=== PATIENT | male | born 1965 | race African-American/Black ===

== ENCOUNTER 2018-08-02 08:53 | Emergency (ER) | payer BC, OTHER ==
[2018-08-02 09:05] VITALS: BMI 42.5
[2018-08-02] MEDS ORDERED: SODIUM CHLORIDE 1,000 ML IV STA (09:27)
[2018-08-02] MEDS ORDERED: ONDANSETRON 4 MG/2 ML VIAL IVPUSH ONE ×2 (09:27→11:37)
[2018-08-02] MEDS ORDERED: PANTOPRAZOLE SODIUM 40 MG in SODIUM CHLORIDE 100 ML IVPB ONE (09:27)
[2018-08-02] MEDS ORDERED: PANTOPRAZOLE SODIUM 40 MG/100 ML BAG IVPB ONE (09:32)
[2018-08-02] MEDS ORDERED: ONDANSETRON 4 MG/2 ML VIAL ONE ×2 (09:32→11:39)
--- NOTE | 2018-08-02 09:44 | PDOC ---
History of Present Illness - General Chief Complaint: Nausea/Vomiting Stated Complaint: VOMITING Time Seen by Provider: 08/02/18 09:25 History Source: Patient Exam Limitations: No Limitations - History of Present Illness Travel History: No Initial Comments: 08/02/18 09:34 52-year-old male with history of hypertension presents to ED with complaints of mid upper abdominal pain since yesterday associated with nausea and vomiting. Patient denies fever, chills with difficulty breathing, chest pain abdominal distention, change in bowel pattern, or change in gas pattern. Patient states no recent travel recent illness. 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 Patient was also placed on Linzess for IBS 1 month ago. Timing/Duration: reports: intermittent Quality: reports: mild, burning, cramping, sharpness Abdominal Pain Onset Location: reports: epigastric Pain Radiation: reports: no radiation Activities at Onset: reports: none Aggravating Factors: improves with: None Alleviating Factors: improves with: None Past History - Travel Traveled outside of the country in the last 30 days: No Close contact w/someone who was outside of country & ill: No - Past Medical History Allergies/Adverse Reactions: Allergies Allergy/AdvReac Type Severity Reaction Status Date / Time ibuprofen Allergy Swelling Verified 08/02/18 09:04 Home Medications: Ambulatory Orders Ciprofloxacin HCl [Cipro] 500 mg PO BID #14 tablet 08/02/18 Lisinopril 20 mg PO DAILY 08/02/18 Ondansetron HCl [Zofran] 4 mg PO TID PRN #12 tablet 08/02/18 COPD: No HTN: Yes - Immunization History Immunization Up to Date: Yes - Suicide/Smoking/Psychosocial Hx Smoking Status: No Smoking History: Never smoked Have you smoked in the past 12 months: Yes Number of Cigarettes Smoked Daily: 0 Hx Alcohol Use: Yes (SOCIAL) Drug/Substance Use Hx: No Substance Use Type: None Patient Lives Alone: No Lives with/in: spouse/SO Abd/GI Specific PMHX - Complaint Specific PMHX Irritable Bowel Synd (IBS): Yes (recent diagnosis) Review of Systems - Review of Systems Able to Perform ROS?: Yes Constitutional: No: Symptoms Reported HEENTM: No: Symptoms Reported Respiratory: No: Symptoms reported Cardiac (ROS): No: Symptoms Reported ABD/GI: Yes: Nausea, Vomiting, Abdominal cramping. No: Abdominal Distended, Constipated, Diarrhea, Poor Appetite, Poor Fluid Intake : No: Symptoms Reported Musculoskeletal: No: Symptoms Reported Integumentary: No: Symptoms Reported Neurological: No: Symptoms reported *Physical Exam - Vital Signs Last Vital Signs Temp Pulse Resp BP Pulse Ox 98.3 F 87 18 153/89 98 08/02/18 09:03 08/02/18 09:03 08/02/18 09:03 08/02/18 09:03 08/02/18 09:03 - Physical Exam General Appearance: Yes: Nourished, Appropriately Dressed. No: Apparent Distress HEENT: positive: EOMI, YONATAN. negative: Pale Conjunctivae Neck: positive: Supple Respiratory/Chest: positive: Lungs Clear, Normal Breath Sounds. negative: Respiratory Distress, Accessory Muscle Use Cardiovascular: positive: Regular Rhythm, Regular Rate. negative: Murmur Gastrointestinal/Abdominal: positive: Soft, Tenderness (epigastric ) Musculoskeletal: negative: CVA Tenderness Extremity: positive: Normal Capillary Refill. negative: Pedal Edema Integumentary: positive: Normal Color, Warm, Moist Neurologic: positive: Motor Strength 5/5 (ambulatory) ED Treatment Course - LABORATORY CBC & Chemistry Diagram: 08/02/18 09:45 08/02/18 09:45 Medical Decision Making - Medical Decision Making 08/02/18 09:56 CC: Epigastric pain w/ vomiting since yesterday. no other complaints. Patient with recent diagnosis of IBS and had an abdominal ultrasound now pending an endoscopy in the next coming weeks exam: Vital signs stable. Patient epigastric tenderness with no distention or right upper quadrant tenderness plan: labs, urine,IV fluids, antiemetics and protonix 08/02/18 11:31 Laboratory Tests 08/02/18 08/02/18 08/02/18 09:45 09:45 10:50 WBC 7.7 Hgb 14.8 Hct 44.5 D Neutrophils % 73.5 Sodium 138 Potassium 3.3 L Chloride 102 Carbon Dioxide 28 Anion Gap 9 BUN 12 Creatinine 1.2 Random Glucose 108 H Calcium 9.2 Magnesium 2.2 Total Bilirubin 0.5 AST 17 ALT 35 Alkaline Phosphatase 86 Lipase 85 Urine Nitrite Negative Ur Leukocyte Esterase 1+ H Urine WBC (Auto) 14 Pt given k- dur. U cx added. will discharge home with cipro 08/02/18 11:39 Pt states slightly nauseated and has mild frontal throbbing pressure. Zofran and tylenol ordered 08/02/18 13:01 Pt states feeling better and tolerated a lunch tray *DC/Admit/Observation/Transfer Diagnosis at time of Disposition: Nausea and vomiting - Discharge Dispostion Disposition: HOME Condition at time of disposition: Improved - Prescriptions Prescriptions: Ciprofloxacin HCl [Cipro] 500 mg PO BID #14 tablet Ondansetron HCl [Zofran] 4 mg PO TID PRN #12 tablet PRN Reason: Nausea And/Or Vomiting - Referrals Referrals: Paulina Guido MD [Primary Care Provider] - - Patient Instructions Printed Discharge Instructions: DI for Vomiting -- Adult Additional Instructions: Follow a bland diet x 48 hrs. Take antibiotic as prescribed . Drink plenty of fluids and take Zofran as needed for nausea - Post Discharge Activity
[2018-08-02 10:01] LABS: BASO % 0.5 % (0-2.0); EOS % 0.1 % (0-4.5); HEMATOCRIT 44.5 % (35.4-49); HEMOGLOBIN 14.8 GM/dL (11.7-16.9); LYMPH % 17.4 % (8-40); MCH 30.5 pg (25.7-33.7); MCHC 33.2 g/dl (32.0-35.9); MEAN PLT VOLUME 7.9 fl (7.5-11.1); MONO % 8.5 % (3.8-10.2); NEUT % 73.5 % (42.8-82.8); PLATELET COUNT 239 K/MM3 (134-434); RBC 4.84 M/mm3 (4.00-5.60); RDW 15.2 % (11.9-15.9); WHITE BLOOD COUNT 7.7 K/mm3 (4.0-10.0)
[2018-08-02 10:32] LABS: ALBUMIN 3.6 g/dl (3.4-5.0); ALK PHOS 86 U/L (45-117); ANION GAP 9 MMOL/L (8-16); BILIRUBIN,TOTAL 0.5 mg/dL (0.2-1); BLOOD UREA NITROGEN 12 mg/dL (7-18); CALCIUM 9.2 mg/dL (8.5-10.1); CHLORIDE 102 mmol/L (98-107); CO2 28 mmol/L (21-32); CREATININE 1.2 mg/dL (0.55-1.3); GLUCOSE,RANDOM 108 mg/dL (74-106); LIPASE 85 U/L (73-393); MAGNESIUM 2.2 mg/dL (1.8-2.4); POTASSIUM 3.3 mmol/L (3.5-5.1); SGOT/AST 17 U/L (15-37); SGPT/ALT 35 U/L (13-61); SODIUM 138 mmol/L (136-145); TOT PROT 7.5 g/dl (6.4-8.2)
[2018-08-02] MEDS ORDERED: POTASSIUM CHLORIDE TABS 20 MEQ TABLET.ER (FP) PO ONE ×2 (10:54→10:59)
[2018-08-02 10:59] LABS: EPI CELLS 2.4 /HPF (0-5/HPF); PH,URINE 7.5 (5.0-8.0); URINE APPEARANCE CLEAR; URINE BACTERIA 7.1 /hpf (NEGATIVE); URINE BILIRUBIN NEGATIVE (NEGATIVE); URINE CASTS 7 /lpf (0-8); URINE COLOR YELLOW; URINE GLUCOSE (UA) NEGATIVE (NEGATIVE); URINE KETONE NEGATIVE (NEGATIVE); URINE LEUK ESTERASE 1+ (NEGATIVE); URINE NITRITE NEGATIVE (NEGATIVE); URINE PROTEIN NEGATIVE (NEGATIVE); URINE RBC 2 /hpf (0-4); URINE WBC 14 /hpf (0-5)
[2018-08-02 11:22] VITALS: BP 156/95; PULSE 80; TEMP 98.2
[2018-08-02] MEDS ORDERED: ACETAMINOPHEN 500 MG TABLET (FP) PO ONE (11:38)
[2018-08-02] MEDS ORDERED: ACETAMINOPHEN 500 MG TABLET (FP) ONE (11:39)
== END 2018-08-02 13:09 | disposition home or self-care (01) ==
LOC: JER 08:53
PROC: 3E033GC Introduction of Other Therapeutic Substance into Peripheral Vein, Percutaneous Approach (ICD-10-PCS; principal; 2018-08-02)
PROC: 3E033GC Introduction of Other Therapeutic Substance into Peripheral Vein, Percutaneous Approach (ICD-10-PCS; 2018-08-02)
PROC: 3E033GC Introduction of Other Therapeutic Substance into Peripheral Vein, Percutaneous Approach (ICD-10-PCS; 2018-08-02)
DX: R11.2 Nausea with vomiting, unspecified (principal); E87.6 Hypokalemia; Z87.19 Personal history of other diseases of the digestive system
CPT/HCPCS: 36415; 80053; 81003; 83690; 83735; 85025; 87086; 99282-25; J7030

== ENCOUNTER 2023-02-20 10:46 | Emergency (ER) | payer OTHER ==
[2023-02-20 10:49] VITALS: BMI 40.6
[2023-02-20] MEDS ORDERED: HEPARIN NA (PORCINE) 5,000 UNITS/ML 1ML VIAL IVPUSH ONE (11:15)
[2023-02-20] MEDS ORDERED: TICAGRELOR 90 MG TABLET PO SCH (11:15)
[2023-02-20] MEDS ORDERED: HEPARIN NA (PORCINE) 5,000 UNITS/ML 1ML VIAL ONE (11:20)
[2023-02-20] MEDS ORDERED: CILOSTAZOL 100 MG TABLET PO ONE (11:21)
[2023-02-20] MEDS ORDERED: NITROGLYCERIN SUBLINGUAL 1/200 0.3 MG BTL SL ONE (11:21)
[2023-02-20] MEDS ORDERED: TICAGRELOR 90 MG TABLET PO STA (11:21)
[2023-02-20] MEDS ORDERED: NITROGLYCERIN SUBLINGUAL 1/150 0.4 MG TAB ONE (11:26)
[2023-02-20] MEDS ORDERED: NITROGLYCERIN SUBLINGUAL 1/150 0.4 MG TAB SL ONE (11:27)
[2023-02-20 11:28] VITALS: BP 161/109; PULSE 101; RESP 20; TEMP 99
[2023-02-20 11:29] LABS: INR 1.03 (0.83-1.09); PROTHROMBIN TIME (PATIENT) 11.9 SEC (9.7-13.0)
[2023-02-20 11:31] LABS: ACTIVATED PTT 27.2 SECONDS (25.2-36.5)
[2023-02-20 11:34] LABS: BASO % 0.6 % (0-2.0); EOS % 1.9 % (0-4.5); HEMATOCRIT 50.6 % (35.4-49); HEMOGLOBIN 16.4 GM/dL (11.7-16.9); LYMPH % 48.3 % (8-40); MCH 30.8 pg (25.7-33.7); MCHC 32.4 g/dl (32.0-35.9); MEAN CELL VOLUME 95.1 fl (80-96); MEAN PLT VOLUME 7.9 fl (7.5-11.1); MONO % 12.3 % (3.8-10.2); NEUT % 36.9 % (42.8-82.8); PLATELET COUNT 263 10^3/uL (134-434); RBC 5.32 M/mm3 (4.00-5.60); RDW 15.3 % (11.9-15.9); WHITE BLOOD COUNT 5.7 K/mm3 (4.0-10.0)
[2023-02-20 11:37] LABS: POTASSIUM 3.6 mmol/L (3.5-5.1)
[2023-02-20 11:40] LABS: ALBUMIN 3.6 g/dl (3.4-5.0); BLOOD UREA NITROGEN 16.7 mg/dL (7-18)
[2023-02-20 11:43] LABS: CREATININE 1.4 mg/dL (0.55-1.3)
[2023-02-20 11:44] LABS: BILIRUBIN,TOTAL 0.4 mg/dL (0.2-1); TOT PROT 7.5 g/dl (6.4-8.2)
== END 2023-02-20 11:49 | disposition short-term general hospital (02) ==
LOC: JER 10:46
PROC: 3E033GC Introduction of Other Therapeutic Substance into Peripheral Vein, Percutaneous Approach (ICD-10-PCS; principal; 2023-02-20)
DX: R07.9 Chest pain, unspecified (principal); R11.0 Nausea; R06.02 Shortness of breath; I10 Essential (primary) hypertension; R00.0 Tachycardia, unspecified; I21.3 ST elevation (STEMI) myocardial infarction of unspecified site; Z20.822 Contact with and (suspected) exposure to COVID-19
CPT/HCPCS: 0241U-QW; 36415; 80053; 84484; 85025; 85610; 85730; 93005; 93010; 99291; J1644